=== PATIENT | male | born 1945 | race Hispanic/Latino ===

== ENCOUNTER 2019-11-08 10:47 | Outpatient (CLI) | payer MEDICARE, MEDICAID, SELFPAY ==
--- NOTE | 2019-11-08 10:52 | ECG_ITS ---
Measurements Intervals [place] Rate: 68 P: -28 VA: 163 QRS: -22 QRSD: 101 T: 0 QT: 399 QTc: 426 Interpretive Statements SINUS RHYTHM DELAYED PRECORDIAL R/S TRANSITION INFERIOR INFARCT, AGE INDETERMINATE BORDERLINE T WAVE ABNORMALITY- LATERAL LEADS ABNORMAL ECG Electronically Signed On 11-08-2019 13:49:04 [employer] by Elie Gutierrez D.O.
[2019-11-08 11:13] LABS: Hematocrit 26.9 % (42.0-52.0); Hemoglobin 9.1 g/dL (14.0-18.0)
[2019-11-08 11:25] LABS: Blood Urea Nitrogen 31 mg/dL (9-20); Calcium 8.4 mg/dL (8.4-10.2); Carbon Dioxide 25 mmol/L (22-30); Chloride 103 mmol/L (98-107); Estimated Glomerular Filt Rate 18; Glucose 125 mg/dL (75-110); Potassium 4.4 mmol/L (3.4-5.0); Sodium 141 mmol/L (137-145)
== END 2019-11-08 10:48 | disposition home or self-care (01) ==
LOC: ANHSURGERY 10:52
PROVIDERS: Anesthesiology; PCP Family Medicine; Visit Provider Orthopaedic Surgery
DX: E11.9 Type 2 diabetes mellitus without complications (principal); I10 Essential (primary) hypertension; D64.9 Anemia, unspecified; R94.31 Abnormal electrocardiogram [ECG] [EKG]
CPT/HCPCS: 36415; 80048; 85014; 85018; 93005

== ENCOUNTER 2019-11-17 00:22 | Day surgery (SDC) | payer MEDICARE, MEDICAID, SELFPAY ==
[2019-10-29 14:12] VITALS: BMI 25.8
--- NOTE | 2019-11-17 11:29 | WPDHPUPDATE1 ---
History and Physical Update Update Date/Time: 11/17/19 11:29 History and Physical has been reviewed, including an updated exam of the patient. There are NO changes in the patient's condition. Risks, benefits, and alternatives have been discussed and questions answered. Patient agrees to proceed with procedure.
[2019-11-17 13:34] VITALS: BP 190/58; PULSE 67; RESP 20; TEMP 36.6; O2SAT 100
[2019-11-17] MEDS: CELECOXIB 200 MG CAPSULE PO (14:00)
[2019-11-17] MEDS: LACTATED RINGERS 1,000 ML 30 ML IV CONT ×2 (14:05→16:59)
[2019-11-17 14:12] LABS: Glucose Point of Care 90 (65-105)
--- NOTE | 2019-11-17 14:40 | WPDANESEPPF ---
Anes - Initial Pre Proc Eval Procedure: Operation Date: 11/17/19 15:00 Proposed Procedures p Left Carpal Tunnel Release, Left Cubital Tunnel Release - Jorje Valle MD Date/Time: 11/17/19 14:40 Surgeon: Jorje Valle MD Pre Op Diagnosis: Left Carpal Tunnel Syndrome Patient Data Age: 74 Gender: M Height: 1.7 m Weight: 74.85 kg Allergies Allergy/AdvReac Type Severity Reaction Status Date / Time No Known Allergies Allergy Unverified 10/29/19 12:58 Home Medications Medication Instructions Recorded Confirmed Type amlodipine 10 mg PO DAILY 10/29/19 10/29/19 History aspirin 325 mg PO DAILY 10/29/19 10/29/19 History atorvastatin 20 mg PO HS 10/29/19 10/29/19 History cilostazol 100 mg PO BID 10/29/19 10/29/19 History clopidogrel 75 mg PO DAILY 10/29/19 10/29/19 History dulaglutide [Trulicity] 0.75 mg SUBCUT WEEKLY 10/29/19 10/29/19 History fenofibrate 160 mg PO DAILY 10/29/19 10/29/19 History ferrous sulfate 325 mg PO BID 10/29/19 10/29/19 History furosemide 20 mg PO DAILY 10/29/19 10/29/19 History gabapentin 1,200 mg PO HS 10/29/19 10/29/19 History gabapentin 600 mg PO DAILY 10/29/19 10/29/19 History insulin NPH isoph U-100 human 25 unit SUBCUT DAILY 10/29/19 10/29/19 History [Novolin N Flexpen] insulin glargine [Lantus Solostar 20 unit SUBCUT DAILY 10/29/19 10/29/19 History U-100 Insulin] insulin glargine [Lantus Solostar 30 unit SUBCUT QPM 10/29/19 10/29/19 History U-100 Insulin] lisinopril 20 mg PO DAILY 10/29/19 10/29/19 History montelukast 10 mg PO HS 10/29/19 10/29/19 History omega 9-rvs-mgo-fish oil [Fish Oil] 1 cap PO DAILY 10/29/19 10/29/19 History omeprazole 20 mg PO DAILY 10/29/19 10/29/19 History sitagliptin [Januvia] 50 mg PO DAILY 10/29/19 10/29/19 History Laboratory Tests 11/17/19 14:10 POC Capillary Glucose 90 mg/dl mg/dl (65-105) Patient hx anesthesia problems: none Family hx anesthesia problems: none [facility] Past Medical History Medical History (Updated 11/16/19 @ 09:03 by Seun Lantigua DO) Arthritis CVA (cerebral vascular accident) 2016 - left leg weakness walks with cane Diabetes Diabetes type 2, controlled Dizziness GERD (gastroesophageal reflux disease) Headache Hyperlipidemia Hypertension Urinary frequency Weight loss Surgical History Surgical History (Updated 11/16/19 @ 09:03 by Seun Lantigua DO) 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 Family History Family History (Updated 03/04/14 @ 10:27 by DOCTOR UNKNOWN) Other Diabetes mellitus Family history of malignant neoplasm Social History Social History Smoking status: Current every day smoker Anes - Eval Final PreProcedure Day of Procedure 11/17/19 14:40 Patient weight: overweight Heart: regular rate and rhythm Lungs: clear to auscultation and normal air movement Airway: Mallampati scale class III Neurological: alert and oriented Last oral intake: >/= 8 hours ASA classification: III Emergent: no Anesthetic plan: proceed Anesthesia type and monitoring: general LMA and standard monitoring Informed Consent: The patient's anesthetic plan and its attendant risks and benefits were discussed with the patient/family/POA. Questions were solicited and answers provided to the satisfaction of the patient/family/POA.
[2019-11-17] MEDS: ceFAZolin 2 GM/D5W 50 ML 2 GM/50 ML BAG IVPB (15:17)
[2019-11-17 16:50] VITALS: BP 123/63; PULSE 62; RESP 12; TEMP 36.3; O2SAT 100
[2019-11-17 16:55] LABS: Glucose Point of Care 103 (65-105)
[2019-11-17 17:05] VITALS: BP 152/66; PULSE 62; RESP 15; O2SAT 100
[2019-11-17 17:20] VITALS: BP 155/68; PULSE 65; RESP 13; O2SAT 92
[2019-11-17 17:25] VITALS: BP 173/64; PULSE 69; RESP 14; O2SAT 96
[2019-11-17 17:55] VITALS: BP 173/66; PULSE 67; RESP 14; O2SAT 99
--- NOTE | 2019-11-17 20:10 | OP_ITS ---
DATE OF PROCEDURE: 11/17/2019 PREOPERATIVE DIAGNOSES: 1. Left carpal tunnel syndrome. 2. Left cubital tunnel syndrome. POSTOPERATIVE DIAGNOSES: 1. Left carpal tunnel syndrome. 2. Left cubital tunnel syndrome. PROCEDURE: 1. Left carpal tunnel release. 2. Left cubital tunnel release. ANESTHESIA: General. COMPLICATIONS: None. INDICATIONS: This is a 74-year-old male with severe carpal tunnel release and cubital tunnel release. He is already showing signs of wasting in the hand. He was indicated for cubital tunnel release and carpal tunnel release. DESCRIPTION OF PROCEDURE: The patient was taken to the operating room in stable condition, placed in supine position. General anesthesia was induced and then the left upper extremity prepped and draped sterilely from the fingers to the axilla. Tourniquet was inflated. The carpal tunnel was addressed first. A line was placed in the center of the flexed ring finger and the carpal tunnel was drawn, and then the cardinal line was drawn as well. Incision was made over the skin down to the subcutaneous tissues until the palmar fascia was identified. Incision was made through the palmar fascia until the carpal tunnel was visualized. A hemostat was placed in the carpal tunnel, and then the palmar fascia was released all the way down to the transcarpal ligament proximally, and then once the transcarpal ligament was identified, a Metzenbaum scissors was used to release the transcarpal ligament in its entirety, and then once that was performed, the wound was irrigated thoroughly and a 4-0 nylon was used to approximate the skin edges. Once that was performed, then incision was made over the left medial side of the elbow between the medial epicondyle and the olecranon down through the subcutaneous tissues until the fascia was identified. Incision was continued to the fascia until the ulnar nerve was palpated, and then incision was made just volar to the ulnar nerve, and then the fascia was divided with the scissors. The ulnar nerve was identified. It was released proximally all the way to the triceps muscle and to the 1/3rd distal arm region with direct visualization. Next, then it was released distally to the point of the flexor carpi ulnaris. Once that was performed, then the nerve was examined and there was no sign of any evidence of the injury or compression. The wound was irrigated thoroughly and then the subcutaneous tissues were approximated with 2-0 Vicryl and the skin was approximated with a 3-0 Quill running subcuticular stitch. Sterile dressing was applied, and then a sterile dressing was applied to the carpal tunnel wound, and then a plaster splint was also applied and then the patient was extubated and sent to recovery. Josh I MT: Muna
== END 2019-11-17 18:00 | disposition home or self-care (01) ==
PROVIDERS: PCP Family Medicine; Visit Provider Orthopaedic Surgery
PROC: (CPT 64721; principal; 2019-11-17 15:00)
DX: G56.02 Carpal tunnel syndrome, left upper limb (principal); I10 Essential (primary) hypertension; E78.5 Hyperlipidemia, unspecified; E11.9 Type 2 diabetes mellitus without complications; K21.9 Gastro-esophageal reflux disease without esophagitis; I69.354 Hemiplegia and hemiparesis following cerebral infarction affecting left non-dominant side; M19.90 Unspecified osteoarthritis, unspecified site; Z95.1 Presence of aortocoronary bypass graft; Z79.82 Long term (current) use of aspirin; Z79.02 Long term (current) use of antithrombotics/antiplatelets; Z79.4 Long term (current) use of insulin; Z79.84 Long term (current) use of oral hypoglycemic drugs
CPT/HCPCS: 64721; A9270; J0131; J0690; J2250; J2405; J2704; J3010; J7120

== ENCOUNTER 2020-04-22 08:49 | Emergency (ER) | payer MEDICARE, MEDICAID, SELFPAY ==
[2020-04-22 08:58] VITALS: BP 173/59; PULSE 80; RESP 18; TEMP 36.7; O2SAT 100
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
== END 2020-04-22 09:40 | disposition home or self-care (01) ==
LOC: ANHED 09:35
PROVIDERS: Emergency Provider Emergency Medicine; PCP Family Medicine
DX: H11.32 Conjunctival hemorrhage, left eye (principal); E11.9 Type 2 diabetes mellitus without complications; M19.90 Unspecified osteoarthritis, unspecified site; K21.9 Gastro-esophageal reflux disease without esophagitis; E78.5 Hyperlipidemia, unspecified; I10 Essential (primary) hypertension; Z79.84 Long term (current) use of oral hypoglycemic drugs; Z79.02 Long term (current) use of antithrombotics/antiplatelets; Z79.82 Long term (current) use of aspirin; F17.200 Nicotine dependence, unspecified, uncomplicated
CPT/HCPCS: 99281